=== PATIENT | female | born 1995 | race Caucasian/White ===

== ENCOUNTER → 2019-02-12 12:05 | Outpatient (CLI) | payer OTHER, SELFPAY ==
--- NOTE | 2019-02-12 12:09 | DI.US.S_ITS ---
PROCEDURE: US OB <= 14 WEEKS FETUS INDICATIONS: DATING AND VIABILITY OUTSIDE/PRIOR DATING DATA: Last menstrual period (LMP): 12/09/18. LMP-based estimated date of delivery (KEVIN): 09/15/19. First dating scan (date and location): 02/12/19. Estimated date of delivery (KEVIN) from first dating scan: 09/13/19. TECHNIQUE: Real-time scanning was performed of the fetus and maternal pelvic organs, with image documentation. Endovaginal scanning was also performed to better visualize the fetus and maternal ovaries. COMPARISON: None. FINDINGS: Embryo: [place]-rump length 2.8 cm correlates with a gestational age of 9 weeks 4 days, with 173 beats per minute heart rate observed. Measurement variability in dating: +/- 4 weeks by LMP, +/- 7 days by mean sac diameter (use before 6 weeks gestation if crown-rump length not able to be measured), +/- 5 days by crown-rump length (up to 8 weeks 6 days gestation), +/- 7 days by crown-rump length (up to 13 weeks 6 days gestation). Maternal organs: Ovaries not seen on the right, normal on the left. Limited images through the kidneys demonstrate no hydronephrosis. IMPRESSION: Single living intrauterine gestation with current estimated gestational age 9 weeks 4 days, plus or -5 days, and with the delivery date projected to be centered on 09/13/19. Followup anatomic survey at approximately 21 weeks gestation is recommended. Dictated by: Vincenzo Kenyon M.D. on 02/12/2019 at 14:07 Approved by: Vincenzo Kenyon M.D. on 02/12/2019 at 14:08
== END ==
PROVIDERS: PCP Family Medicine; Visit Provider Family Medicine
DX: Z34.81 Encounter for supervision of other normal pregnancy, first trimester (principal); Z3A.09 9 weeks gestation of pregnancy
CPT/HCPCS: 76801

== ENCOUNTER → 2019-02-20 12:41 | Outpatient (CLI) | payer OTHER, SELFPAY ==
[2019-02-20 13:28] LABS: Add Manual Diff / Slide Review NO; Basophils Absolute Auto 0 /uL (0-100); Basophils Percent Auto 0.2 % (0-2); Eosinophils Absolute Auto 0 /uL (0-450); Eosinophils Percent Auto 0.6 % (2-4); Hematocrit 39.9 % (36-46); Hemoglobin 13.7 g/dL (12.0-16.0); Lymphocytes Absolute Auto 1000 /uL (1100-4500); Lymphocytes Percent Auto 13.4 % (25-40); Mean Corpuscular HGB Conc 34.3 % (30-36); Mean Corpuscular Hemoglobin 30.3 PG (26-34); Mean Corpuscular Volume 88.3 fL (80-100); Monocytes Absolute Auto 400 /uL (0-900); Monocytes Percent Auto 5.2 % (3-14); Neutrophils Absolute Auto 6200 /uL (1500-7000); Neutrophils Percent Auto 80.6 % (50-75); Platelet Count 301 X10^3/uL (150-400); Red Blood Cell Count 4.52 X10^6/uL (4.0-5.2); Red Cell Distribution Width 13.2 % (11.6-14.8); White Blood Cell Count 7.7 X10^3/uL (4.5-11.0)
[2019-02-20 13:35] LABS: Appearance Urine UA CLEAR; Bilirubin Urine UA NEGATIVE (NEGATIVE); Color Urine UA YELLOW; Glucose Urine UA NEGATIVE (Negative); Ketones Urine UA NEGATIVE (NEGATIVE); Leukocyte Esterase Urine UA NEGATIVE (NEGATIVE); Nitrite Urine UA NEGATIVE (Negative); Occult Blood Urine UA NEGATIVE (Negative); Protein Urine UA NEGATIVE (Negative); Specific Gravity Urine UA 1.015 (1.000-1.035); Urobilinogen Urine UA 0.2 E.U./dL (0.2); pH Urine UA 6.5 (4.5-8.0)
[2019-02-20 15:44] LABS: Hepatitis B Surface Antigen NEGATIVE s/c (NEGATIVE); Rubella Antibody IgG 6.8 IU/mL (>15)
[2019-02-20 16:01] LABS: HIV 1 and 2 Antibody NEGATIVE (NEGATIVE); Hep C Virus Ab w/Reflex Quant NEGATIVE s/c (NEGATIVE)
[2019-02-22 14:18] LABS: RPR Screen Nonreactive (Nonreactive)
== END ==
PROVIDERS: PCP Family Medicine; Visit Provider Family Medicine
DX: Z34.81 Encounter for supervision of other normal pregnancy, first trimester (principal)
CPT/HCPCS: 36415; 80055; 81003; 86703; 86787; 86803; 86850; 86900; 86901; 87086

== ENCOUNTER → 2019-05-14 12:51 | Outpatient (CLI) | payer OTHER, SELFPAY ==
--- NOTE | 2019-05-14 12:53 | DI.US.S_ITS ---
PROCEDURE: US OB >= 14 WEEKS FETUS INDICATIONS: ANATOMY SCAN OUTSIDE/PRIOR DATING DATA: Last menstrual period (LMP): 12/09/18. LMP-based estimated date of delivery (KEVIN): 09/15/19. First dating scan (date and location): 05/14/19, [facility]. Estimated date of delivery (KEVIN) from first dating scan: 09/12/19. TECHNIQUE: Real-time scanning was performed of the fetus, with image documentation and biometric measurements. COMPARISON: [facility], , OB <= 14 WEEKS FETUS, 02/12/2019, 12:35. FINDINGS: General: A single live intrauterine gestation is present. Presentation: Breech. Placenta: Placental position is anterior, without previa. Amniotic fluid index: 14.2 cm, normal range is 5-24 cm. heart rate: 140 beats per minute. Maternal cervical canal: 4.3 cm long. Normal lower limit is 2.5 cm. biometrics: Biparietal diameter: 5.4 cm equals 22 weeks 3 days Head circumference: 20.3 cm equals 22 weeks 3 days Abdominal circumference: 18.2 cm equals 23 weeks 0 days Femur length: 3.9 cm equals 22 weeks 3 days Estimated gestational age from initial scan: 22 weeks 2 days Composite gestational age from present scan: 22 weeks 5 days Estimated weight and percentile: 529 g, 66th percentile Measurement variability for biometric dating: +/- 7 days from 14 weeks to 15 weeks 6 days gestation, +/- 10 days from 16 weeks to 21 weeks 6 days gestation, +/- 2 weeks from 22 weeks to 27 weeks 6 days gestation, +/- 3 weeks for 28 weeks gestation or later. weight reference: 4500 g or EFW >90/95% is considered macrosomia or large for gestational age. EFW <10% is small for gestational age. EFW 5% or less is considered intra-uterine growth restriction. Anatomic survey: Neuro: Ventricles are non-dilated at less than 10 mm. Cisterna magna is normal at 3-11 mm. Cerebellum is normal in size and morphology. Nuchal skin fold: Normal at less than 6 mm between 14-21 weeks gestational age. Face: Nose and lips, facial profile are normal. Spine: No evidence for spina bifida. Heart: 4-chambered heart is present, with normal ventricular outflow tracts. Diaphragm: Diaphragm is intact. Stomach: Left-sided stomach is present. Kidneys: A prominent right renal pelvis is seen measuring 4.1 mm, which is not frankly enlarged. Normal is less than 5 mm in 2nd trimester, less than 7 mm in 3rd trimester. Cord: 3-vessel cord has orthotopic insertion. Bladder: Normal in size. Extremities: All 4 extremities identified. Note is made of mild maternal right hydronephrosis. This study is limited by body habitus. IMPRESSION: No significant discrepancy is found between the estimated gestational age based on these images and the estimated gestational age based upon the given date of the last menstrual period. No significant anatomic abnormality is seen, although there is a mildly prominent right renal pelvis. Mild maternal hydronephrosis is seen on the right. Dictated by: Isaac De Paz M.D. on 05/15/2019 at 9:38 Approved by: Isaac De Paz M.D. on 05/15/2019 at 9:58
== END ==
PROVIDERS: PCP Family Medicine; Visit Provider Family Medicine
DX: Z36.89 Encounter for other specified antenatal screening (principal); O99.89 Other specified diseases and conditions complicating pregnancy, childbirth and the puerperium; N13.30 Unspecified hydronephrosis; Z3A.22 22 weeks gestation of pregnancy
CPT/HCPCS: 76811

== ENCOUNTER → 2019-06-11 10:30 | Outpatient (CLI) | payer OTHER, SELFPAY ==
[2019-06-11 12:08] LABS: Hematocrit 37.2 % (36-46)
[2019-06-11 12:20] LABS: GTT (PREG) 1 Hour PP 50gm Dose 105 mg/dL (76-139)
== END ==
PROVIDERS: Family Provider Family Medicine; PCP Family Medicine; Visit Provider Family Medicine
DX: Z34.90 Encounter for supervision of normal pregnancy, unspecified, unspecified trimester (principal); Z3A.26 26 weeks gestation of pregnancy
CPT/HCPCS: 36415; 82950; 85014; 85018

== ENCOUNTER → 2019-08-20 09:30 | Outpatient (CLI) | payer OTHER, SELFPAY ==
[2019-08-21 08:31] LABS: Strep Grp B PCR NEG for Grp B Strep
== END ==
PROVIDERS: Family Provider Family Medicine; PCP Family Medicine; Visit Provider Family Medicine
DX: Z34.90 Encounter for supervision of normal pregnancy, unspecified, unspecified trimester (principal); Z3A.36 36 weeks gestation of pregnancy
CPT/HCPCS: 87653

== ENCOUNTER 2019-09-03 17:23 | Outpatient (CLI) | payer OTHER, SELFPAY | END 2019-09-03 18:36 | disposition home or self-care (01) | LOC: OB 09-07 12:45 | PROVIDERS: Family Provider Family Medicine; PCP Family Medicine; Visit Provider Family Medicine | DX: Z34.83 Encounter for supervision of other normal pregnancy, third trimester (principal); Z3A.38 38 weeks gestation of pregnancy | CPT/HCPCS: 59025; G0378; G0379 ==

== ENCOUNTER 2019-09-07 14:03 | Inpatient (IN) | payer OTHER, SELFPAY ==
[2019-09-07 14:34] LABS: Bacteria Urine None Seen
[2019-09-07 14:35] LABS: Add Manual Diff / Slide Review NO; Basophils Absolute Auto 100 /uL (0-100); Basophils Percent Auto 0.5 % (0-2); Eosinophils Absolute Auto 0 /uL (0-450); Eosinophils Percent Auto 0.4 % (2-4); Hematocrit 38.3 % (36-46); Hemoglobin 13.4 g/dL (12.0-16.0); Lymphocytes Absolute Auto 900 /uL (1100-4500); Lymphocytes Percent Auto 8.6 % (25-40); Mean Corpuscular HGB Conc 35.1 % (30-36); Mean Corpuscular Hemoglobin 30.6 PG (26-34); Mean Corpuscular Volume 87.2 fL (80-100); Monocytes Absolute Auto 500 /uL (0-900); Monocytes Percent Auto 4.8 % (3-14); Neutrophils Absolute Auto 9000 /uL (1500-7000); Neutrophils Percent Auto 85.7 % (50-75); Platelet Count 307 X10^3/uL (150-400); Red Blood Cell Count 4.39 X10^6/uL (4.0-5.2); Red Cell Distribution Width 13.2 % (11.6-14.8); White Blood Cell Count 10.5 X10^3/uL (4.5-11.0)
[2019-09-07 14:40] LABS: Appearance Urine UA CLEAR; Bilirubin Urine UA NEGATIVE (NEGATIVE); Color Urine UA YELLOW; Glucose Urine UA NEGATIVE (Negative); Ketones Urine UA NEGATIVE (NEGATIVE); Leukocyte Esterase Urine UA NEGATIVE (NEGATIVE); Nitrite Urine UA NEGATIVE (Negative); Occult Blood Urine UA NEGATIVE (Negative); Protein Urine UA NEGATIVE (Negative); Specific Gravity Urine UA 1.015 (1.000-1.035); Urobilinogen Urine UA 0.2 E.U./dL (0.2)
[2019-09-07 14:52] LABS: Aspartate Aminotransferase 121 IU/L (14-36); BUN Creatinine Ratio 12.9 (6-22); Blood Urea Nitrogen 9 mg/dL (7-17); Estimated Glomerular Filt Rate > 60.0 mL/min (>60); Uric Acid 6.1 mg/dL (2.5-6.2)
[2019-09-07 14:59] LABS: Culture Indicated Urine Cult Not Indicated; RBC Urine 0-1/HPF (0-5/HPF); Squamous Epithelial Cell Urine 5-10 /HPF (0-5/HPF); WBC Urine 1-5/HPF (0-5/HPF)
[2019-09-07 15:07] LABS: Creatinine Urine Random 152.4 mg/dL; Protein (Total) Urine Random 10 mg/dL (0-12); Protein Creatinine Ratio Urine 0.06 GRAM/24H
--- NOTE | 2019-09-07 16:49 | PM.OBHP.1 ---
OB HPI Date/Time Date of admission: 09/07/19 Date Patient Seen: 09/07/19 Time Patient Seen: 16:30 History of Present Condition Chief complaint: OBS : 2 Para: 1 Estimated Date of Delivery: 09/15/19 Estimated Gestational Age (weeks): 38w6d Narrative: Dian Willingham is a 24 year old at 38+6 days gestation here with hypertension. We have been following her blood pressures closely as they have been creeping up at the end of the . Patient checked her BP this morning at home and it was 142/98 and 143/94. She lives on [facility] and was instructed to come to the center for evaluation. She denies headache, RUQ pain, worsening edema or vision changes. complicated by morbid obesity, otherwise uncomplicated with normal labs and US. Indications Indication for induction OB: medical complication (Pre-eclampsia) History of Present care: good care, initiated at week # (10), number of visits (12) and pounds weight gain (20) Dating criteria: LMP confirmed by 1st trimester US Ultrasounds: normal 1st trimester US and normal mid trimester US Obstetrical complications: preeclampsia Medical complications: none Preadmission Labs Blood type: A (+) positive -: Antibody screen: negative, GBS status: negative, HBsAG: negative, HIV: negative and RPR/VDLR: negative -: Chlamydia screen: not detected and Gonorrhea screen: not detected -: Rubella: not immune and Varicella: immune HCT: 39.9 HCAB: negative PAP: Normal Urine: Negative 1 hr GTT: 105 Prior (ies) History: 01/01/2016 Vacuum assisted vaginal delivery for maternal exhaustion at 40 weeks, 22 hour labor, 8 lbs 7 oz male. Pitocin induction for hypertension. Breast fed 6 weeks. Evaluation Evaluation Baseline heart rate: 130 Variability: Moderate (11-25) monitor accelerations: Present monitor decelerations: Absent Category of Tracing: I Cervical dilation (cm): 2 Cervical effacement (%): 50 station: -2 Laboratory results: Laboratory Tests 09/07/19 09/07/19 09/07/19 14:15 14:15 14:27 WBC 10.5 RBC 4.39 Hgb 13.4 Hct 38.3 MCV 87.2 MCH 30.6 MCHC 35.1 RDW 13.2 Plt Count 307 Neut % (Auto) 85.7 H Lymph % (Auto) 8.6 L [place] % (Auto) 4.8 Eos % (Auto) 0.4 L Baso % (Auto) 0.5 Neut # (Auto) 9000 H Lymph # (Auto) 900 L [place] # (Auto) 500 Eos # (Auto) 0 Baso # (Auto) 100 BUN Creatinine Estimated GFR BUN/Creatinine Ratio Uric Acid AST Urine Color Yellow Urine Appearance Clear Urine pH 6.0 Ur Specific [place] 1.015 Urine Protein Negative Urine Glucose (UA) Negative Urine Ketones Negative Urine Occult Blood Negative Urine Nitrate Negative Urine Bilirubin Negative Urine Urobilinogen 0.2 Ur Leukocyte Esterase Negative Urine RBC 0-1/hpf Urine WBC 1-5/hpf Ur Squamous Epith Cells 5-10 /hpf H Urine Bacteria None seen Ur Culture Indicated? Cult not indicated U Random Total Protein 10 Urine Creatinine 152.4 Protein/Creatinin Ratio 0.06 09/07/19 14:27 WBC RBC Hgb Hct MCV MCH MCHC RDW Plt Count Neut % (Auto) Lymph % (Auto) [place] % (Auto) Eos % (Auto) Baso % (Auto) Neut # (Auto) Lymph # (Auto) [place] # (Auto) Eos # (Auto) Baso # (Auto) BUN 9 Creatinine 0.70 Estimated GFR > 60.0 BUN/Creatinine Ratio 12.9 Uric Acid 6.1 AST 121 H Urine Color Urine Appearance Urine pH Ur Specific [place] Urine Protein Urine Glucose (UA) Urine Ketones Urine Occult Blood Urine Nitrate Urine Bilirubin Urine Urobilinogen Ur Leukocyte Esterase Urine RBC Urine WBC Ur Squamous Epith Cells Urine Bacteria Ur Culture Indicated? 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) Smoking Status: Never smoker alcohol intake: former substance use type: does not use Meds Home Medications and Allergies Home Medications Medication Instructions Recorded Confirmed Type prenat.vits,zohra,nrq-mntk-ciwsw 1 tab PO DAILY 02/13/19 08/27/19 History Allergies Allergy/AdvReac Type Severity Reaction Status Date / Time latex [LATEX] AdvReac Mild Sensitivity Verified 08/27/19 10:10 -Rash Review of Systems Constitutional Constitutional: Denies fatigue and Denies fever(s) Cardiovascular Cardiovascular: Denies shortness of breath Respiratory Respiratory: Denies cough and Denies dyspnea Gastrointestinal Gastrointestinal: Denies abdominal pain and Denies change in bowel habits Genitourinary Genitourinary: Denies vaginal discharge, Denies vaginal odor and Denies pelvic pain Endocrine Endocrine: Denies fatigue Exam Vital Signs (past 8 hours): Temperature 36.2 Initial blood pressure 141/71, repeat 130/80 Heart rate 71 Const General: healthy appearing and comfortable Nutritional Appearance: obese morbidly obese [facility] Head: normal to inspection Ears: hearing grossly normal bilaterally Nose: external nose normal Face and sinus: normal facial exam Mouth: oral mucosae normal Eyes General: appearance normal, both eyes and all related structures Neck Neck: normal visual inspection Resp Effort & Inspection: normal respiratory effort Auscultation: clear to auscultation bilaterally Cardio Rate: regular rate Rhythm: regular rhythm Heart Sounds: no murmurs GI Other: Gravid External Female Exam: external appearance normal Manual OB Exam: dilated 2, effaced 50% and station -2 Presentation: vertex Estimated Weight (lbs): 8 Back/Spine/Pelvis Back: normal to inspection Skin General: no rashes or lesions noted Neuro DTR's: Rt Patellar: 1+ and Lt Patellar: 1+ Extrem General: normal to inspection and edema (1+ bilaterally) Objective Labs Result Diagrams: 09/07/19 14:27 09/07/19 14:27 Labs: Laboratory Results - last 24 hr 09/07/19 09/07/19 09/07/19 14:15 14:15 14:27 WBC 10.5 RBC 4.39 Hgb 13.4 Hct 38.3 MCV 87.2 MCH 30.6 MCHC 35.1 RDW 13.2 Plt Count 307 Neut % (Auto) 85.7 H Lymph % (Auto) 8.6 L [place] % (Auto) 4.8 Eos % (Auto) 0.4 L Baso % (Auto) 0.5 Neut # (Auto) 9000 H Lymph # (Auto) 900 L [place] # (Auto) 500 Eos # (Auto) 0 Baso # (Auto) 100 BUN Creatinine Estimated GFR BUN/Creatinine Ratio Uric Acid AST Urine Color Yellow Urine Appearance Clear Urine pH 6.0 Ur Specific [place] 1.015 Urine Protein Negative Urine Glucose (UA) Negative Urine Ketones Negative Urine Occult Blood Negative Urine Nitrate Negative Urine Bilirubin Negative Urine Urobilinogen 0.2 Ur Leukocyte Esterase Negative Urine RBC 0-1/hpf Urine WBC 1-5/hpf Ur Squamous Epith Cells 5-10 /hpf H Urine Bacteria None seen Ur Culture Indicated? Cult not indicated U Random Total Protein 10 Urine Creatinine 152.4 Protein/Creatinin Ratio 0.06 09/07/19 14:27 WBC RBC Hgb Hct MCV MCH MCHC RDW Plt Count Neut % (Auto) Lymph % (Auto) [place] % (Auto) Eos % (Auto) Baso % (Auto) Neut # (Auto) Lymph # (Auto) [place] # (Auto) Eos # (Auto) Baso # (Auto) BUN 9 Creatinine 0.70 Estimated GFR > 60.0 BUN/Creatinine Ratio 12.9 Uric Acid 6.1 AST 121 H Urine Color Urine Appearance Urine pH Ur Specific [place] Urine Protein Urine Glucose (UA) Urine Ketones Urine Occult Blood Urine Nitrate Urine Bilirubin Urine Urobilinogen Ur Leukocyte Esterase Urine RBC Urine WBC Ur Squamous Epith Cells Urine Bacteria Ur Culture Indicated? U Random Total Protein Urine Creatinine Protein/Creatinin Ratio Assessment and Plan Assessment and Plan Assessment and Plan narrative: 24-year-old at 38 weeks and 6 days gestation with hypertension and elevated liver enzymes consistent with preeclampsia without severe features. Urine protein creatinine ratio was normal and patient is completely asymptomatic. Blood pressures in the center have ranged from the 120s to 140 systolic over 70s to 80s diastolic. Dewitt score of 5. Discussed risk and benefits of induction with patient. Will proceed with induction for preeclampsia. Consent signed. Plan Cervidil overnight followed by Pitocin in the morning if needed GBS negative Epidural upon request Anticipate
[2019-09-07 17:02] LABS: Alanine Aminotransferase 166 IU/L (<35); Albumin 3.6 g/dL (3.5-5.0); Albumin Globulin Ratio 1.1 (1.0-2.8); Alkaline Phosphatase 215 U/L (38-126); Aspartate Aminotransferase 123 IU/L (14-36); Bilirubin Total 0.5 mg/dL (0.2-1.3); Blood Urea Nitrogen 9 mg/dL (7-17); Calcium 9.5 mg/dL (8.4-10.2); Carbon Dioxide 20 mmol/L (22-32); Chloride 106 mmol/L (98-107); Estimated Glomerular Filt Rate > 60.0 mL/min (>60); Globulin 3.2 g/dL (1.7-4.1); Glucose 95 mg/dL (70-100); HEMOLYSIS < 15 (0-50); Potassium 4.1 mmol/L (3.4-5.1); Sodium 136 mmol/L (137-145); Total Protein 6.8 g/dL (6.3-8.2)
[2019-09-07] MEDS: DINOPROSTONE VAG (CERVIDIL) 10 MG VAG (18:23)
[2019-09-07 18:29] VITALS: BP 127/74
--- NOTE | 2019-09-08 07:57 | PM.OBPNLAB ---
Date/Time Date Patient Seen: 09/08/19 Time Patient Seen: 07:45 Pain Control Pain control: tolerating well Comments: Denies FLORES, vision changes, RUQ pain. Edema unchanged. Feeling crampy and pressure this morning. Pelvic Exam Dilation (cm): 3 Effacement (%): 100 station: -2 Amniotic membrane status: Ruptured (AROM performed with scant amount of fluid) Contractions Contraction pattern: Irregular Status status: Category l Heart Rate Baseline: 130 Monitor Accelerations: Present Monitor Decelerations: Absent Monitor Variability: Moderate Assessment and Plan Assessment: induction ongoing Comments: 24 year old at 39 weeks here for induction for pre-eclampsia without severe features. Patient is asymptomatic this morning and blood pressures were 110s/60s-130s/80s overnight. Good progress overnight with cervidil, Dewitt score of 9 today. AROM performed with scant fluid. Will start pitocin per protocol if patient does not become active after AROM.
[2019-09-08] MEDS: LACTATED RINGERS 1,000 ML 100 ML IV (08:08)
[2019-09-08] MEDS: OXYTOCIN PREMIX 30 UNIT/500 ML PLAST..BAG IV (08:30)
--- NOTE | 2019-09-08 10:46 | PM.OBPNLAB ---
Date/Time Date Patient Seen: 09/08/19 Time Patient Seen: 10:46 Pain Control Pain control: tolerating well and epidural Comments: Feeling intermittent pelvic pressure with contractions. Pelvic Exam Dilation (cm): 6 Effacement (%): 100 station: -1 Amniotic membrane status: Ruptured (thin meconium) Contractions Contraction frequency (min): 5 Contraction pattern: Irregular Status status: Category l Heart Rate Baseline: 130 Monitor Accelerations: Present Monitor Decelerations: Absent Monitor Variability: Moderate Assessment and Plan Assessment: induction ongoing Comments: Comfortable with epidural. Contractions spaced after epidural, increase per protocol.
--- NOTE | 2019-09-08 13:49 | PM.OBPRVD ---
 Events: Pre-Eclampsia (Induction for mildly elevated blood pressures with elevated AST/ALT) and Meconium Stained Fluid Labor & Delivery Delivery date: 09/08/19 Cervical ripening method: per Cervidil protocol Induction method: per pitocin protocol Delivery monitor: external FHT Route of delivery: L&D Laceration Description: None Estimated blood loss (mL): 300 Anesthesia type: Epidural Narrative: BRIEF HISTORY: Patient is a 24-year-old at 39 weeks who gave on 09/08/2019 at 1:04 p.m.. KEVIN: 09/15/2019 Hospital problems: 39 weeks of Preeclampsia Shoulder dystocia STAGE I: Labor Patient received cervical ripening overnight with Cervidil and was started on Pitocin per protocol the morning of 09/08/19. AROM at 7:47 a.m. with thin meconium. Patient progressed with Pitocin and received an epidural with adequate pain control. She was complete at 12:15 p.m.. heart tones were primarily category 1 throughout stage I though category 2 for occasional variables and late decelerations which resolved with position change. STAGE II: Delivery Patient began pushing at 12:26 p.m.. Pitocin was increased due to infrequent contractions. Infant's head delivered at 1:02 a.m. however this was followed by shoulder dystocia. Carmen maneuver and suprapubic pressure performed without resolution of shoulder dystocia. Attempts were made to rotate the shoulders however unsuccessful. At this point the posterior shoulder was brought near the perineum to deliver the posterior arm and the rotated and delivered. The umbilical cord was immediately clamped and cut and given to waiting RT and RN. A segment of cord was taken for gases. Initial was 7 and 's heart rate was in the 170s with spontaneous respirations. Infant received a brief period of blow-by oxygen but did not require further resuscitation. Five-minute was 9. was suctioned at the warmer and monitored for several minutes then taken to mother. STAGE III: Placenta/Cord Placenta delivered at 1:08 a.m. after active management with a three-vessel cord and appeared intact. Pitocin bolus given after delivery of placenta. There were no vaginal lacerations. There was a very superficial left superior labial laceration which was not repaired. Hemostasis assured. Fundus firm after delivery. EBL: 300 mL. Needle and sponge counts were correct. The vagina was inspected and no items were left in situ. Patient was doing well with Taniya, her and at bedside. Baby 1: Infant gender: Female Presentation: vertex Placenta delivery description: Spontaneous cord vessel description: 3 Vessels score (1 min): 7 score (5 min): 9 Plan for aftercare: Routine vaginal care.
[2019-09-09 05:42] LABS: Add Manual Diff / Slide Review NO; Basophils Absolute Auto 0 /uL (0-100); Basophils Percent Auto 0.3 % (0-2); Eosinophils Absolute Auto 100 /uL (0-450); Eosinophils Percent Auto 0.5 % (2-4); Hematocrit 31.7 % (36-46); Lymphocytes Absolute Auto 1300 /uL (1100-4500); Lymphocytes Percent Auto 11.1 % (25-40); Mean Corpuscular HGB Conc 34.9 % (30-36); Mean Corpuscular Hemoglobin 30.4 PG (26-34); Mean Corpuscular Volume 87.1 fL (80-100); Monocytes Absolute Auto 700 /uL (0-900); Neutrophils Absolute Auto 9400 /uL (1500-7000); Neutrophils Percent Auto 82.1 % (50-75); Platelet Count 279 X10^3/uL (150-400); Red Blood Cell Count 3.64 X10^6/uL (4.0-5.2); Red Cell Distribution Width 13.4 % (11.6-14.8); White Blood Cell Count 11.5 X10^3/uL (4.5-11.0)
[2019-09-09 05:50] LABS: Alanine Aminotransferase 152 IU/L (<35); Albumin 3.1 g/dL (3.5-5.0); Albumin Globulin Ratio 1.1 (1.0-2.8); Alkaline Phosphatase 161 U/L (38-126); Aspartate Aminotransferase 104 IU/L (14-36); Bilirubin Total 0.4 mg/dL (0.2-1.3); Blood Urea Nitrogen 6 mg/dL (7-17); Calcium 9.1 mg/dL (8.4-10.2); Carbon Dioxide 24 mmol/L (22-32); Chloride 104 mmol/L (98-107); Estimated Glomerular Filt Rate > 60.0 mL/min (>60); Globulin 2.8 g/dL (1.7-4.1); Glucose 88 mg/dL (70-100); HEMOLYSIS < 15 (0-50); Potassium 3.9 mmol/L (3.4-5.1); Sodium 135 mmol/L (137-145); Total Protein 5.9 g/dL (6.3-8.2)
--- NOTE | 2019-09-09 09:19 | P.DS_ITS ---
Discharge Providers Provider Date of admission: 09/07/19 14:03 Discharge Date: 09/09/19 Primary care physician: Marine Newberry MD Consults: 09/09/19 13:46 Consult to Product Development Consultant Routine Comment: Discharge provider: Niecy Sierra DO Summary Hospital Course Date Patient Seen: 09/09/19 Time Patient Seen: 09:00 Procedures: Spontaneous vaginal delivery Epidural analgesia Hospital Course: Patient is a 24-year-old G2 now P2 1 day after spontaneous vaginal delivery complicated by 90 second shoulder dystocia. Patient was brought in for induction due to preeclampsia without severe features. Initial blood pressures are mildly elevated and liver enzymes elevated though patient was completely asymptomatic. She progressed after Cervidil and Pitocin induction. Received an epidural for pain control. Delivery complicated by 90 second shoulder dystocia as previously mentioned eventually relieved with delivery of the posterior shoulder. did well after delivery with Apgars of 7 and 9 and did not require resuscitation beyond minimal blow-by oxygen. Patient sustained a very superficial labial laceration which was not repaired. course was uncomplicated. Patient was ambulating, voiding, passing flatus and eating. Vaginal bleeding decreasing. Pain well controlled with ibuprofen only. Patient denied headache, right upper quadrant pain, vision changes or worsening edema. She will discharge home today to [facility]. Patient advised to call for fevers, bleeding through more than a pad an hour, severe pain or new headaches. Follow-up for 6 week visit. Peripartum Data Delivery Method: Natural Vaginal Laceration description: None complications: none 1: Gender: Female Disposition of : home Discharge Diagnosis (1) Preeclampsia: Status: Acute (2) 39 weeks gestation of : Status: Acute (3) Spontaneous vaginal delivery: Status: Acute (4) Shoulder dystocia during labor and delivery: Status: Acute Time Spent with Patient Time attestation: Total time spent providing and/or coordinating discharge services: Objective Labs Result Diagrams: 09/09/19 05:30 09/09/19 05:30 Labs: Laboratory Results - last 24 hr 09/09/19 09/09/19 05:30 05:30 WBC 11.5 H RBC 3.64 L Hgb 11.0 L Hct 31.7 L MCV 87.1 MCH 30.4 MCHC 34.9 RDW 13.4 Plt Count 279 Neut % (Auto) 82.1 H Lymph % (Auto) 11.1 L [place] % (Auto) 6.0 Eos % (Auto) 0.5 L Baso % (Auto) 0.3 Neut # (Auto) 9400 H Lymph # (Auto) 1300 [place] # (Auto) 700 Eos # (Auto) 100 Baso # (Auto) 0 Sodium 135 L Potassium 3.9 Chloride 104 Carbon Dioxide 24 BUN 6 L Creatinine 0.60 Estimated GFR > 60.0 BUN/Creatinine Ratio 10.0 Glucose 88 Calcium 9.1 Total Bilirubin 0.4 AST 104 H ALT 152 H Alkaline Phosphatase 161 H Total Protein 5.9 L Albumin 3.1 L Globulin 2.8 Albumin/Globulin Ratio 1.1 Exam Vital Signs (past 8 hours): Temperature 97.5? Blood pressure 138/91 Heart rate 92 Narrative Exam Narrative: General: Well-appearing, morbidly obese. Awake and alert, no acute distress. HEENT: NCAT, EOMI, moist oral mucosa CV: Regular rate and rhythm, no murmurs, rubs or gallops Lungs: CTAB, no wheezes, rales, or rhonchi Abdomen: Large pannus. Soft, nontender; bowel tones active; uterus firm 1 cm below umbilicus Extremities: Warm, trace bilateral edema, 2+ pedal pulses bilaterally Discharge Plan Discharge Plan Patient Disposition: Home Discharge orders & Medications Prescriptions: New docusate sodium [DOK] 100 mg Capsule 100 mg PO DAILY Qty: 30 RF: 0 ibuprofen 600 mg Tablet 600 mg PO Q6HR PRN (Reason: Pain, Mild (1-3)) Qty: 30 RF: 0 Continued prenat.vits,zohra,viq-[id number] tablet 1 tab PO DAILY RF: 0 Follow up/Referrals: Marine Newberry MD [Primary Care Provider] - Niecy Sierra DO [Physician] - 6 Weeks Visit Report/Discharge Packet Visit Report Forms: Patient Portal/API, Stroke Signs & Symptoms Discharge Data Primary Care Provider: Marine Newberry
[2019-09-09] MEDS: PRENATAL VIT,CALC/IRON/FOLIC 1 TABLET 1 TAB PO (14:49)
[2019-09-09 16:16] VITALS: BP 129/76; PULSE 101; RESP 18; TEMP 36.3
[2019-09-09] MEDS: MEASLES,MUMPS,RUBELLA VACC/PF 0.5 ML VIAL SUBCUT (17:05)
== END 2019-09-09 17:26 | disposition home or self-care (01) | DRG 807 ==
PROVIDERS: Admitting Provider Family Medicine; Family Provider Family Medicine; PCP Family Medicine; Visit Provider Family Medicine
DX: O14.04 Mild to moderate pre-eclampsia, complicating childbirth (principal); Z37.0 Single live birth; Z3A.38 38 weeks gestation of pregnancy; O66.0 Obstructed labor due to shoulder dystocia; O77.0 Labor and delivery complicated by meconium in amniotic fluid
CPT/HCPCS: 01967; 36415; 59050; 59410; 80053; 81001; 82570; 84156; 84450; 84550; 85025; 86850; 86900; 86901; G0379; J2590; J3010

== ENCOUNTER → 2019-11-09 11:55 | Outpatient (CLI) | payer OTHER, SELFPAY ==
[2019-11-09 14:55] LABS: Urine Chlamydia NOT DETECTED; Urine N gonorrhoeae NOT DETECTED
== END ==
PROVIDERS: Family Provider Family Medicine; PCP Family Medicine; Visit Provider Family Medicine
DX: Z11.3 Encounter for screening for infections with a predominantly sexual mode of transmission (principal); Z11.8 Encounter for screening for other infectious and parasitic diseases; Z30.430 Encounter for insertion of intrauterine contraceptive device
CPT/HCPCS: 87491; 87591

== ENCOUNTER → 2023-12-08 09:23 | Outpatient (CLI) | payer OTHER, SELFPAY ==
[2023-12-08 19:23] LABS: Add Manual Diff / Slide Review NO; Basophils Absolute Auto 0 /uL (0-100); Basophils Percent Auto 0.4 % (0-2); Eosinophils Absolute Auto 100 /uL (0-450); Eosinophils Percent Auto 0.8 % (2-4); Hematocrit 42.7 % (36-46); Hemoglobin 14.5 g/dL (12.0-16.0); Lymphocytes Absolute Auto 1200 /uL (1100-4500); Lymphocytes Percent Auto 17.8 % (25-40); Mean Corpuscular HGB Conc 33.9 % (30-36); Mean Corpuscular Volume 88.6 fL (80-100); Monocytes Absolute Auto 400 /uL (0-900); Monocytes Percent Auto 6.1 % (3-14); Neutrophils Absolute Auto 5100 /uL (1500-7000); Neutrophils Percent Auto 74.9 % (50-75); Platelet Count 315 X10^3/uL (150-400); Red Blood Cell Count 4.82 X10^6/uL (4.0-5.2); Red Cell Distribution Width 13.3 % (11.6-14.8); White Blood Cell Count 6.8 X10^3/uL (4.5-11.0)
[2023-12-08 19:25] LABS: Alanine Aminotransferase 23 IU/L (<35); Albumin Globulin Ratio 1.4 (1.0-2.8); Alkaline Phosphatase 67 U/L (38-126); Aspartate Aminotransferase 22 IU/L (14-36); BUN Creatinine Ratio 22.4 (6-22); Bilirubin Total 0.6 mg/dL (0.2-1.3); Blood Urea Nitrogen 13 mg/dL (7-17); Calcium 9.5 mg/dL (8.4-10.2); Carbon Dioxide 25 mmol/L (22-32); Chloride 106 mmol/L (98-107); Cholesterol 129 mg/dL (140-199); Estimated Glomerular Filt Rate > 60 mL/min (>60); Globulin 2.9 g/dL (1.7-4.1); Glucose 84 mg/dL (70-100); HDL Cholesterol 48 mg/dL (40-60); HEMOLYSIS 16 (0-50); LDL Cholesterol Calculated 71 mg/dL (<100); Potassium 4.1 mmol/L (3.4-5.1); Sodium 138 mmol/L (137-145); Total Protein 6.9 g/dL (6.3-8.2); Triglycerides 50 mg/dL (35-150)
[2023-12-08 19:54] LABS: TSH w/ Reflex to FT4 1.54 uIU/mL (0.47-4.68)
== END ==
PROVIDERS: Family Provider Family Medicine; PCP Physician Assistant; Visit Provider Physician Assistant
DX: R63.5 Abnormal weight gain (principal); Z13.6 Encounter for screening for cardiovascular disorders; Z79.899 Other long term (current) drug therapy
CPT/HCPCS: 80053; 80061; 84443; 85025